=== PATIENT | male | born 1980 | race Asian ===

== ENCOUNTER → 2019-04-15 | Outpatient (CLI) | payer OTHER ==
--- NOTE | 2019-04-15 07:23 | PFTRPT ---
Height: 68.00 Inches Weight: 250.00 Lbs BSA: 2.25 Diagnosis: R06.02 DATE OF PROCEDURE: 04/15/2019 ORDERED BY: TRAY Keys Spirometry: Pre and post bronchodilator study of excellent technical quality. Forced vital capacity normal. FEV1 in proportion. Obstructive index is, therefore, normal. Flow Volume Loop: Expiratory limb of the flow volume loop is normal. There is significant flattening of the inspiratory limb of the flow volume loop, raising the question of vocal cord dysfunction, however. No significant bronchodilator response is identified. Lung Volumes: Total lung capacity normal. Residual volume raises the question or air trapping. Diffusing Capacity: Diffusing capacity, although minimally reduced, is appropriate for alveolar volume. Hemoglobin: Hemoglobin is within normal limits. Airway Mechanics: Airway resistance only marginally elevated with a concomitant decrease in airway conductance. IMPRESSION: Flattening of the inspiratory limb of the flow volume loop requires clinical correlation. Cannot rule out underlying air trapping as well. Please correlate clinically. MTDD
== END ==
LOC: M CARPUL 06:28
PROVIDERS: ATTEND Nurse Practitioner Adult Health
DX: R06.02 Shortness of breath (principal)

== ENCOUNTER → 2019-04-22 | Outpatient (CLI) | payer OTHER ==
[~2019-04-22] MED LIST: METHACHOLINE KIT (J7674) INH ONE
--- NOTE | 2019-04-22 08:32 | PFTRPT ---
Height: 68.00 Inches Weight: 250.00 Lbs BSA: 2.25 Diagnosis: R06.02 DATE OF PROCEDURE: 04/22/2019 ORDERED BY: Anabel Corona INTERPRETATION: Study of excellent technical quality. Under protocol, methacholine was administered. Even after a maximal dose of 25 mg (188.875 CDUs) of methacholine, no provocation dose ever achieved. IMPRESSION: Negative methacholine challenge study. MTDD
== END ==
LOC: M CARPUL 07:32
PROVIDERS: ATTEND Nurse Practitioner Adult Health
DX: R06.02 Shortness of breath (principal)
CPT/HCPCS: 94070; J7674